=== PATIENT | male | born 1965 | race Caucasian/White ===

== ENCOUNTER 2020-05-06 09:00 | Emergency (ER) | payer BC ==
--- NOTE | 2020-05-06 09:38 | EDM.PDOC ---
ED HPI GENERAL MEDICAL PROBLEM - General Chief Complaint: General Stated Complaint: WEAKNESS, COVID+ Time Seen by Provider: 05/06/20 09:15 Source of Information: Reports: Patient History Limitations: Reports: No Limitations - History of Present Illness INITIAL COMMENTS - FREE TEXT/NARRATIVE: 55 YO WM PRESENTS TO ER COMPLAINING OF GENERALIZED WEAKNESS WHICH HAS BECOME PROGRESSIVELY WORSE SINCE 04/29/20 WHEN DIAGNOSED WITH COVID. PT REPORTS FEVER, GENERALIZED WEAKNESS AND MYALGIAS BEGAN ON 04/26/2020. PT WAS DIAGNOSED WITH COVID ON 04/29/20. PT REPORTS TAKING MOTRIN/TYLENOL FOR SYMPTOMS BUT STATES HE HASN'T BEEN EATING OR DRINKING WELL DUE TO EPIGASTRIC DISCOMFORT AND FEELING GENERALLY ILL. PT REPORTS MILD SHORTNESS OF BREATH, NONPRODUCTIVE COUGH AND SUBJECTIVE FEVERS. PT DENIES CHEST PAIN, DIAPHORESIS OR SEVERE SHORTNESS OF BREATH. PT DENIES HISTORY OF DIABETES, HEART DISEASE, OBESITY OR AUTOIMMUNE DISEASE. PT CAME TO ER DUE TO CONCERN OF LACK OF IMPROVEMENT AFTER 10 DAYS. PT ALSO REPORTS A GENERALIZED RASH WITH ITCHING ON HIS TORSO WHICH BEGAN 3 DAYS AGO. Onset Date: 04/26/20 Duration: Day(s): (10) Location: Reports: Generalized Severity: Moderate Improves with: Reports: Rest Worsens with: Reports: Movement Associated Symptoms: Reports: Cough, Fever/Chills, Loss of Appetite, Rash, Shortness of Breath. Denies: Chest Pain Treatments PROPOSAL REP: Reports: Acetaminophen, NSAIDS Sternum Pain Score (Numeric/FACES): 8 - Related Data Allergies Allergy/AdvReac Type Severity Reaction Status Date / Time Sulfa (Sulfonamide Allergy Rash Verified 05/06/20 09:22 Antibiotics) Home Meds: Home Meds Doxycycline Monohydrate 100 mg PO BID #20 cap 05/06/20 [Rx] Social & Family History - Tobacco Use Tobacco Use Status *Q: Never Tobacco User - Caffeine Use Caffeine Use: Reports: Coffee, Tea - Alcohol Use Days Per Week of Alcohol Use: 5 Number of Drinks Per Day: 1 Total Drinks Per Week: 5 - Recreational Drug Use Recreational Drug Use: No ED ROS GENERAL - Review of Systems Review Of Systems: See Below Constitutional: Reports: Fever, Chills, Malaise HEENT: Reports: Rhinitis Respiratory: Reports: Shortness of Breath, Cough Cardiovascular: Reports: No Symptoms Endocrine: Reports: No Symptoms GI/Abdominal: Reports: Abdominal Pain. Denies: Black Stool, Bloody Stool, Diarrhea, Nausea, Vomiting : Reports: No Symptoms Musculoskeletal: Reports: Muscle Pain Skin: Reports: Rash Neurological: Reports: No Symptoms Psychiatric: Reports: No Symptoms Hematologic/Lymphatic: Reports: No Symptoms Immunologic: Reports: No Symptoms ED EXAM, GENERAL - Physical Exam Exam: See Below Exam Limited By: No Limitations General Appearance: Alert, WD/WN, No Apparent Distress Ears: Normal External Exam, Normal Canal, Hearing Grossly Normal, Normal TMs Ear Exam: Bilateral Ear: Auricle Normal, Canal Normal, TM normal Nose: Normal Inspection, Normal Mucosa, No Blood Throat/Mouth: Normal Inspection, Normal Lips, Normal Teeth, Normal Gums, Normal Oropharynx, Normal Voice, No Airway Compromise Head: Atraumatic, Normocephalic Neck: Normal Inspection, Supple, Non-Tender, Full Range of Motion Respiratory/Chest: No Respiratory Distress, Lungs Clear, Normal Breath Sounds, No Accessory Muscle Use, Chest Non-Tender Cardiovascular: Normal Peripheral Pulses, Regular Rate, Rhythm, No Edema, No Gallop, No JVD, No Murmur, No Rub GI/Abdominal: Normal Bowel Sounds, Soft, Non-Tender, No Organomegaly, No Distention, No Abnormal Bruit, No Mass Back Exam: Normal Inspection, Full Range of Motion, NT Extremities: Normal Inspection, Normal Range of Motion, Non-Tender, Normal Capillary Refill, No Pedal Edema Neurological: Alert, Oriented, CN II-XII Intact, Normal Cognition, Normal Gait, No Motor/Sensory Deficits Psychiatric: Normal Affect, Normal Mood Skin Exam: Other (MACULAR/PAPULAR RASH TO TORSO) Lymphatic: No Adenopathy #1 Interpretation EKG Date: 05/06/20 Time: 10:10 Rhythm: NSR Rate (Beats/Min): 63 [place]: Normal P-Wave: Present QRS: Normal ST-T: Normal QT: Normal Comparison: NA - No Prior EKG EKG Interpretation Comments: 1st degree AV block Course - Vital Signs Last Recorded V/S: Last Vital Signs Temp 99.0 F 05/06/20 10:43 Pulse 64 05/06/20 11:00 Resp 24 H 05/06/20 11:00 BP 143/87 H 05/06/20 11:00 Pulse Ox 96 05/06/20 11:00 - Orders/Labs/Meds Orders: Active Orders 24 hr Category Date Time Status EKG Documentation Completion [RC] ASDIRECTED Care 05/06/20 09:46 Active Peripheral IV Care [RC] . DIRECTED Care 05/06/20 09:46 Active Sodium Chloride 0.9% [Saline Flush] Med 05/06/20 09:46 Active 10 ml FLUSH Q8HR PRN Peripheral IV Insertion Adult [OM.PC] Routine Oth 05/06/20 09:46 Ordered EKG 12 Lead [EK] Stat Ther 05/06/20 09:46 Ordered Medication Orders Sodium Chloride (Saline Flush) 10 ml FLUSH Q8HR PRN PRN Reason: keep vein open Last Admin: 05/06/20 10:00 Dose: 10 ml Documented by: RADHA Labs: Laboratory Tests 05/06/20 05/06/20 05/06/20 Range/Units 09:50 09:50 09:50 WBC 5.62 (5.00-10.00) 10^3/uL RBC 5.52 (4.50-6.00) 10^6/uL Hgb 15.6 (13.0-17.0) g/dL Hct 45.2 (40.0-52.0) % MCV 81.9 L (82.0-92.0) fL MCH 28.3 (27.0-31.0) pg MCHC 34.5 (32.0-36.0) g/dL RDW 12.3 (11.5-14.5) % Plt Count 215 (150-400) 10^3/uL MPV 9.0 (7.4-10.4) fL Immature Gran % (Auto) 0.2 (0.0-5.0) % Neut % (Auto) 73.6 H (50.0-70.0) % Lymph % (Auto) 16.7 L (20.0-40.0) % [place] % (Auto) 7.7 (2.0-8.0) % Eos % (Auto) 1.6 (1.0-3.0) % Baso % (Auto) 0.2 (0.0-1.0) % Neut # (Auto) 4.14 (2.50-7.00) 10^3/uL Lymph # (Auto) 0.94 L (1.00-4.00) 10^3/uL [place] # (Auto) 0.43 (0.10-0.80) 10^3/uL Eos # (Auto) 0.09 L (0.10-0.30) 10^3/uL Baso # (Auto) 0.01 (0.00-0.10) 10^3/uL Immature Gran # (Auto) 0.01 (0.00-0.50) 10^3/uL Sodium 143 (136-145) mmol/L Potassium 3.9 (3.5-5.1) mmol/L Chloride 106 (98-107) mmol/L Carbon Dioxide 26.9 (21.0-32.0) mmol/L Anion Gap 14.0 (5-15) mmol/L BUN 19 H (7-18) mg/dL Creatinine 0.86 (0.51-1.17) mg/dL Est Cr Clr Drug Dosing 105.27 mL/min Estimated GFR (MDRD) > 60 mL/min Glucose 109 (70-140) mg/dL Lactic Acid 1.0 (0.4-2.0) mmol/L Calcium 8.5 L (8.7-10.3) mg/dL Total Bilirubin 0.7 (0.2-1.0) mg/dL AST 88 H (15-37) U/L ALT 166 H (14-63) U/L Alkaline Phosphatase 71 (46-116) U/L Total Protein 7.2 (6.4-8.2) g/dL Albumin 3.11 L (3.40-5.00) g/dL Lipase 123 (73-393) U/L Meds: Medications Generic Name Dose Route Start Last Admin Trade Name Freq PRN Reason Stop Dose Admin Sodium Chloride 10 ml 05/06/20 09:46 05/06/20 10:00 Saline Flush FLUSH 10 ml Q8HR PRN Administration keep vein open Discontinued Medications Generic Name Dose Route Start Last Admin Trade Name Freq PRN Reason Stop Dose Admin Acetaminophen 1,000 mg 05/06/20 10:34 05/06/20 10:43 Tylenol Extra Strength PO 05/06/20 10:35 1,000 mg ONETIME ONE Administration Al Hydroxide/Mg Hydroxide 30 0 ml 05/06/20 10:34 05/06/20 10:42 ml/ Lidocaine HCl 15 ml PO 05/06/20 10:35 45 ml ONETIME ONE Administration Sodium Chloride 1,000 mls @ 999 mls/hr 05/06/20 09:46 05/06/20 09:59 Normal Saline IV 05/06/20 10:46 999 mls/hr .BOLUS ONE Administration - Radiology Interpretation Free Text/Narrative:: CXR- EARLY BILATERAL PNEUMONIA Departure - Departure Time of Disposition: 11:36 Disposition: Home, Self-Care 01 Condition: Fair Clinical Impression: COVID-19, Elevated liver enzymes Pneumonia Qualifiers: Pneumonia type: due to unspecified organism Laterality: bilateral Lung location: lower lobe of lung Qualified Code(s): J18.9 - Pneumonia, unspecified organism - Discharge Information Prescriptions: Doxycycline Monohydrate 100 mg PO BID #20 cap Instructions: COVID-19 Frequently Asked Questions, Community-Acquired Pneumonia, Adult Referrals: Maryjane Williamson MD [Primary Care Provider] - Forms: ED Department Discharge Additional Instructions: 1. DISCHARGE HOME 2. DOXYCYCLINE 100MG TWICE/DAY X 10 DAYS 3. ALBUTEROL HFA 2 PUFFS EVERY 4 HOURS AND NEEDED 4. FOLLOW UP WITH PCP NEXT 48-72 HOURS FOR RECHECK AND FURTHER EVALUATION OF ELEVATED LIVER ENZYMES 5. RETURN TO ER FOR WORSENING SYMPTOMS Sepsis Event Note (ED) - Evaluation Sepsis Screening Result: No Definite Risk - Focused Exam Vital Signs: Vital Signs Temp Temp Pulse Resp BP Pulse Ox 05/06/20 11:00 64 24 H 143/87 H 96 05/06/20 10:45 66 22 H 154/87 H 96 05/06/20 10:43 99.0 F 05/06/20 10:30 65 19 134/87 95 05/06/20 10:25 66 25 H 142/84 H 95 05/06/20 10:15 61 19 141/85 H 95 05/06/20 09:45 78 18 139/90 92 L 05/06/20 09:10 98.3 F 68 21 H 170/87 H 92 L - My Orders Last 24 Hours: My Active Orders 05/06/20 09:46 EKG Documentation Completion [RC] ASDIRECTED Peripheral IV Care [RC] . DIRECTED Sodium Chloride 0.9% [Saline Flush] 10 ml FLUSH Q8HR PRN Peripheral IV Insertion Adult [OM.PC] Routine EKG 12 Lead [EK] Stat - Assessment/Plan Last 24 Hours: My Active Orders 05/06/20 09:46 EKG Documentation Completion [RC] ASDIRECTED Peripheral IV Care [RC] . DIRECTED Sodium Chloride 0.9% [Saline Flush] 10 ml FLUSH Q8HR PRN Peripheral IV Insertion Adult [OM.PC] Routine EKG 12 Lead [EK] Stat Assessment:: 1. COVID+ 2. EARLY BILATERAL PNEUMONIA 3. GENERALIZED WEAKNESS 4. ELEVATED LIVER ENZYMES Plan: 1. DISCHARGE HOME 2. DOXYCYCLINE 100MG TWICE/DAY X 10 DAYS 3. ALBUTEROL HFA 2 PUFFS EVERY 4 HOURS AND NEEDED 4. FOLLOW UP WITH PCP NEXT 48-72 HOURS FOR RECHECK AND FURTHER EVALUATION OF ELEVATED LIVER ENZYMES 5. RETURN TO ER FOR WORSENING SYMPTOMS
[2020-05-06] MEDS ORDERED: Sodium Chloride 0.9% 1,000 ML IV ONE (09:46)
[2020-05-06] MEDS: Sodium Chloride 0.9% 10 ML Syringe FLUSH PRN ×4 (10:00→13:09)
[2020-05-06 10:17] LABS: CHLORIDE,CL 106 mmol/L (98-107); SODIUM,NA 143 mmol/L (136-145)
[2020-05-06] MEDS ORDERED: Alum Hydrox/Mag Hydrox/Simeth 30 ML, Lidocaine 2% 15 ML PO ONE ×2 (10:34)
[2020-05-06] MEDS ORDERED: Acetaminophen 500 MG Tab PO ONE (10:34)
--- NOTE | 2020-05-06 11:28 | CR ---
[id number] RAD/RAD Chest PA or AP 1V EXAM: SINGLE VIEW CHEST. INDICATION: COVID SHORTNESS OF BREATH COMPARISON: NO PREVIOUS SIMILAR EXAM IS AVAILABLE FINDINGS: Early bilateral infiltrates are seen The cardiac silhouette is prominent IMPRESSION: EARLY BILATERAL PNEUMONIA Constantine Miles MD 05/06/20 [id number] Thank you for allowing us to participate in the care of your patient.
[2020-05-06] MEDS ORDERED: cefTRIAXone 1 GM Vial IVPUSH SCH (11:30)
[2020-05-06] MEDS ORDERED: methylPREDNISolone Sodium Succinate 125 MG/2 ML SDV IVPUSH ONE (11:30)
[2020-05-06] MEDS ORDERED: Albuterol 8 GM Inhaler INH ONE (11:35)
== END 2020-05-06 12:00 | disposition home or self-care (01) ==
LOC: KA.ED 09:00
DX: U07.1 COVID-19 (principal); J18.9 Pneumonia, unspecified organism; R79.89 Other specified abnormal findings of blood chemistry; Z88.2 Allergy status to sulfonamides
CPT/HCPCS: 71045; 80053; 83605; 83690; 85025; 93005; 96374; 99284; 99285-25; A9270-GY; J0696; J2930; J7030